=== PATIENT | male | born 1990 | race Caucasian/White ===

== ENCOUNTER → 2016-08-24 | Outpatient (CLI) | payer BC, OTHER | LOC: GMA 16:50 | PROVIDERS: ATTEND Nurse Practitioner Family | DX: M25.561 Pain in right knee (principal) ==

== ENCOUNTER → 2018-09-27 | Outpatient (CLI) | payer OTHER | LOC: GMAM 15:47 | PROVIDERS: ATTEND Family Medicine | DX: M10.9 Gout, unspecified (principal) ==

== ENCOUNTER → 2019-02-07 | Outpatient (CLI) | payer OTHER ==
--- NOTE | 2019-02-07 12:52 | MRI ---
EXAM DESCRIPTION: Upper Extremity Joint,Right CLINICAL HISTORY: 28 years, Male, PAIN IN RIGHT SHOULDER, right shoulder pain, limited range of motion. Old football injury. COMPARISON: Right shoulder radiograph 01/24/2019 TECHNIQUE: MRI of the right shoulder was performed with multiplanar multi sequence imaging without intravenous contrast. FINDINGS: Rotator tendons: Mild partial-thickness articular surface tears of the anterior supraspinatus tendon insertional fibers. Mild partial-thickness bursal surface tears of the supraspinatus mid and posterior fibers at the myotendinous junction.. Mild bursal surface fraying of the infraspinatus tendon. Mild subscapularis tendinosis without focal tear. The teres minor tendon is intact. Rotator muscles: No rotator cuff muscle atrophy. Glenoid labrum: Limited evaluation of the labrum demonstrate nondisplaced tears of the anterior labrum with more extensive complex tearing of the posterior and inferior labrum with March large size para labral cyst formation measuring at least 1.4 cm along the posterior labrum and 1.6 cm from the inferior labrum. Acromion: The acromion morphology is type two. Mild acromioclavicular joint osteoarthrosis with capsular hypertrophy and small inferiorly projecting osteophyte. Bone and joints: No full-thickness cartilage defect. No focal bone marrow contusion or fracture. Thickening of the inferior glenohumeral ligament consistent with chronic capsular sprain. Biceps tendon: Normal course and morphology of the biceps tendon long head within the bicipital groove. The biceps labral anchor appears intact. Soft tissues: No solid or cystic mass is seen. No focal muscle strain or edema. Mild subacromial/subdeltoid bursitis. IMPRESSION: 1. Supraspinatus and infraspinatus low grade partial thickness tearing. No full-thickness rotator cuff tear or tendon retraction. 2. Multifocal glenoid labral tears more pronounced along the posterior and inferior labrum with moderate size paralabral cyst formation. 3. Chronic inferior glenohumeral ligament/capsular sprain. 4. Mild acromioclavicular joint osteoarthrosis with small inferiorly projecting osteophyte can be a cause for external impingement on the rotator cuff. Mild subacromial/subdeltoid bursitis. Electronically signed by: Woodrow Tidwell DO 02/07/2019 12:50 PM [facility]
== END ==
LOC: MRI 10:00
PROVIDERS: ATTEND Family Medicine
DX: M75.101 Unspecified rotator cuff tear or rupture of right shoulder, not specified as traumatic (principal); M19.011 Primary osteoarthritis, right shoulder; M25.711 Osteophyte, right shoulder; M71.311 Other bursal cyst, right shoulder; M75.51 Bursitis of right shoulder